=== PATIENT | female | born 1985 | race Caucasian/White ===

== ENCOUNTER 2021-01-29 10:39 | Outpatient (REF) | payer BC, SELFPAY ==
--- NOTE | ~2021-01-29 | XR_ITS ---
EXAMINATION: XR HAND, LEFT CLINICAL INFORMATION: Pain in left hand. COMPARISON: None TECHNIQUE: PA, lateral, and oblique views of the left hand. FINDINGS: There is a transverse fracture across the base of the fifth metacarpal. There is no intra-articular extension. There is minimal volar angulation of the distal fragment without significant displacement. XR/XR hand LT min 3V IMPRESSION: Fracture base of left fifth metacarpal.
== END 2021-01-29 10:40 | disposition home or self-care (01) ==
LOC: HO.HOSX 10:39
PROVIDERS: Visit Provider Physician Assistant
DX: S62.307A Unspecified fracture of fifth metacarpal bone, left hand, initial encounter for closed fracture (principal)
CPT/HCPCS: 26600; 29085; 73130

== ENCOUNTER 2021-02-26 08:57 | Outpatient (REF) | payer BC, SELFPAY ==
--- NOTE | ~2021-02-26 | XR_ITS ---
EXAMINATION: XR HAND, LEFT CLINICAL INFORMATION: Left hand pain. COMPARISON: Left hand radiographs dated 01/29/2021. TECHNIQUE: PA, lateral, and oblique views of the left hand. FINDINGS: Redemonstration of a mildly displaced fracture of the base of the 5th metacarpal in unchanged anatomic alignment. Mild new bone/callus formation. No acute fracture. No dislocation. No joint space narrowing or marginal osteophytes. No osseous erosion. No abnormal soft tissue calcification. XR/XR hand LT min 3V IMPRESSION: Proximal 5th metacarpal fracture with mild interval new bone/callus formation.
== END 2021-02-26 08:58 | disposition home or self-care (01) ==
LOC: HO.HOSX 08:57
PROVIDERS: Visit Provider Physician Assistant
DX: S62.307D Unspecified fracture of fifth metacarpal bone, left hand, subsequent encounter for fracture with routine healing (principal)
CPT/HCPCS: 73130

== ENCOUNTER 2021-03-10 09:30 | Outpatient (RCR) | payer BC, SELFPAY ==
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
--- NOTE | 2021-03-23 10:45 | MHC.OT.DC ---
[address] [phone] F: [phone] Occupational Therapy Discharge Note Provider: Manny Gonzalez PA-C Diagnosis: Left D5 metacarpal base fx Date of Evaluation: 03/02/21 Date of Discharge: 03/23/21 Treatments to Date: 2 Cancellations to Date: 1 No Shows to Date: 1 Discharge Status: Improved Function Independent with HEP Patient Elected to Stop Discharge Summary: Afia was seen for OT s/p L D5 MC fracture. She has good follow through w/ HEP, increased MCP and wrist flexion noted from previous visit. She has missed last two appointments and has no new visits scheduled, I anticipate she will do well to continue home program. Electronically Signed By: Kia Dickson OTR/L Please Sign and return to therapist, thank you for your referral.
== END 2021-03-23 10:45 | disposition home or self-care (01) ==
LOC: HO.OT 09:30
PROVIDERS: PCP Internal Medicine; Visit Provider Physician Assistant
DX: S62.308D Unspecified fracture of other metacarpal bone, subsequent encounter for fracture with routine healing (principal)
CPT/HCPCS: 29130; 97110; 97140; 97165; 97760